=== PATIENT | male | born 2000 | race Hispanic/Latino ===

== ENCOUNTER 2024-03-26 06:40 | Emergency (ER) | payer SELFPAY ==
[~2024-03-26] VITALS: Ht 182.9 cm; Wt 106.2 kg
[2024-03-26 08:09] LABS: RSV AMPLIFICATION NEGATIVE (NEGATIVE)
[2024-03-26 09:25] VITALS: O2SAT 99
[2024-03-26 10:24] VITALS: BP 120/60; TEMP 97.7
[2024-03-26] MEDS: IBUPROFEN 600MG TAB PO ONE (10:25)
== END 2024-03-26 10:28 | disposition home or self-care (01) ==
LOC: M ED 06:40 → EDBD 06:40 → M ED 10:28
DX: J02.9 Acute pharyngitis, unspecified (principal)

== ENCOUNTER 2024-05-16 12:13 | Emergency (ER) | payer SELFPAY ==
[~2024-05-16] VITALS: Ht 180.3 cm; Wt 110.6 kg
[2024-05-16 12:22] VITALS: BP 137/76; TEMP 98.7; O2SAT 100
[2024-05-16] MEDS: AUGMENTIN 875 MG TAB PO ONE (12:38)
[2024-05-16] MEDS ORDERED: AMOX875T2 PO (12:49)
== END 2024-05-16 13:15 | disposition home or self-care (01) ==
LOC: EDBD 12:13 → M ED 12:13
DX: S01.351A Open bite of right ear, initial encounter (principal); Y04.1XXA Assault by human bite, initial encounter; Y92.9 Unspecified place or not applicable; Y93.9 Activity, unspecified; Y99.9 Unspecified external cause status

== ENCOUNTER 2024-07-27 17:31 | Emergency (ER) | payer SELFPAY ==
[~2024-07-27] VITALS: Ht 182.9 cm; Wt 108.9 kg
[~2024-07-27 17:31] MED LIST: AMOX875T2 PO
[2024-07-27 17:51] VITALS: BP 166/77; TEMP 98.1; O2SAT 100
[2024-07-27] MEDS ORDERED: AMOX500C PO (20:38)
[2024-07-27] MEDS: AMOXICILLIN 500 MG CAP PO ONE (20:46)
[2024-07-27] MEDS: IBUPROFEN 100MG 5ML SUSP UDC DYE FREE PO ONE (20:46)
== END 2024-07-27 20:49 | disposition home or self-care (01) ==
LOC: M ED 17:31
DX: J02.0 Streptococcal pharyngitis (principal)

== ENCOUNTER → 2024-08-29 | Outpatient (REF) | payer SELFPAY ==
[~2024-08-29] MED LIST changes: +AMOX500C PO
[2024-08-29 15:27] LABS: Trichomonas vaginalis (AMP) NOT DETECTED (NEGATIVE)
[2024-08-29 15:50] LABS: GC DNA AMPLIFICATION NEGATIVE (NEGATIVE)
== END ==
LOC: M LAB REF 12:48
PROVIDERS: ATTEND Physician Assistant
DX: Z11.9 Encounter for screening for infectious and parasitic diseases, unspecified (principal)

== ENCOUNTER → 2024-09-02 | Outpatient (REF) | payer SELFPAY ==
[2024-09-02 14:29] LABS: HEMOGLOBIN A1c 5.2 % (4.0-6.0)
[2024-09-02 14:58] LABS: ALBUMIN 4.5 G/DL (3.2-5.2); ALKALINE PHOSPHATASE 100 U/L (40-129); ALT/SGPT 20 U/L (7.0-40); AST/SGOT 19 U/L (<34); BILIRUBIN,TOTAL 1.2 MG/DL (0.3-1.2); BLOOD UREA NITROGEN 11 MG/DL (9-23); CALCIUM LEVEL 9.6 MG/DL (8.5-10.1); CARBON DIOXIDE LEVEL 28 MMOL/L (20-31); CHLORIDE LEVEL 105 MMOL/L (98-107); CHOLESTEROL LEVEL 161 MG/DL (<200); CHOLESTEROL RISK RATIO 3.83 (<5); CREATININE FOR GFR 0.79 MG/DL (0.70-1.30); GLOMERULAR FILTRATION RATE > 60.0 (>60); GLUCOSE, FASTING 96 MG/DL (60-100); HEPATITIS C VIRUS ABY INDEX 0.35 INDEX (<0.8); HIV 1&2 SCREEN NEGATIVE (NEGATIVE); LDL CHOLESTEROL 104.8 MG/DL (<100); POTASSIUM SERUM 4.2 MMOL/L (3.5-5.1); SODIUM LEVEL 142 MMOL/L (136-145); THYROID STIMULATING HORMONE 0.729 uIU/ML (0.55-4.78); TOTAL 25(OH) VITAMIN D 11.9 NG/ML (20.0-100.0); TRIGLYCERIDES LEVEL 71 MG/DL (<150)
== END ==
LOC: M LAB REF 11:53
PROVIDERS: ATTEND Physician Assistant
DX: Z11.9 Encounter for screening for infectious and parasitic diseases, unspecified (principal); E66.9 Obesity, unspecified; E55.9 Vitamin D deficiency, unspecified

== ENCOUNTER 2024-11-25 16:48 | Emergency (ER) | payer OTHER, SELFPAY ==
[~2024-11-25] VITALS: Ht 182.9 cm; Wt 112.0 kg
[2024-11-25] MEDS: ACETAMINOPHEN 325 MG TAB PO ONE (20:55)
[2024-11-25] MEDS: AMPICILLIN SOD/SULBACTAM SOD 3 GM in DEXTROSE 5% (D5W) MINI-BAG PLU 100 ML IV ONE (21:10)
[2024-11-25] MEDS: dexAMETHasone 20MG/5ML VIAL IV ONE (21:10)
[2024-11-25 21:47] LABS: BASO % 0.3 % (0.0-1.0); EOS # 0.1 10^3/uL (0.0-0.5); EOS % 0.8 % (0.0-3.0); HEMATOCRIT 45.6 % (42.0-52.0); HEMOGLOBIN 15.6 g/dl (13.5-17.5); LYMPH # 0.8 10^3/uL (1.5-5.0); LYMPH % 5.8 % (24.0-44.0); MEAN CORPUSCULAR HEMOGLOBIN 30.6 pg (27.0-33.0); MEAN CORPUSCULAR HGB CONC 34.2 g/dl (32.0-36.5); MEAN CORPUSCULAR VOLUME 89.4 fl (80.0-96.0); MONO # 0.8 10^3/uL (0.0-0.8); MONO % 5.7 % (2.0-8.0); NEUTROPHILS # 12.4 10^3/uL (1.5-8.5); PLATELET COUNT, AUTOMATED 184 10^3/uL (150-450); WHITE BLOOD COUNT 14.2 10^3/uL (4.0-10.0)
[2024-11-25] MEDS ORDERED: ISOVUE-370 76% 100ML VIAL As Ordered ONE (21:54)
[2024-11-25 22:41] LABS: ERYTHROCYTE SEDIMENTATION RATE 56 mm/hr (0-15)
[2024-11-25] MEDS ORDERED: AMOX875T2 PO (22:46)
[2024-11-25 22:51] VITALS: BP 136/73; TEMP 99.1; O2SAT 97
== END 2024-11-25 22:52 | disposition home or self-care (01) ==
LOC: M ED 16:48
DX: J03.00 Acute streptococcal tonsillitis, unspecified (principal)
CPT/HCPCS: 70491; 80047; 85025; 85652; 86140; 87040; 87880; 96374; 96375; 99284; J0295; J1100; Q9967

== ENCOUNTER → 2025-03-04 | Outpatient (REF) | payer OTHER ==
[2025-03-04 16:11] LABS: HIV 1&2 SCREEN NEGATIVE (NEGATIVE)
[2025-03-04 16:19] LABS: HEPATITIS C VIRUS ABY INDEX 0.03 INDEX (<0.8)
[2025-03-07 15:17] LABS: HSV SOURCE Serum; HSV-1 DNA Not Detected (Not Detected); HSV-2 DNA Not Detected (Not Detected)
== END ==
LOC: M LAB REF 14:42
PROVIDERS: ATTEND Physician Assistant
DX: Z11.3 Encounter for screening for infections with a predominantly sexual mode of transmission (principal)

== ENCOUNTER → 2025-04-23 | Outpatient (REF) | payer OTHER ==
[2025-04-23 19:01] LABS: Trichomonas vaginalis (AMP) NOT DETECTED (NEGATIVE)
[2025-04-23 19:26] LABS: GC DNA AMPLIFICATION NEGATIVE (NEGATIVE)
== END ==
LOC: M LAB REF 16:28
PROVIDERS: ATTEND Physician Assistant
DX: Z11.3 Encounter for screening for infections with a predominantly sexual mode of transmission (principal); A64 Unspecified sexually transmitted disease; Z11.9 Encounter for screening for infectious and parasitic diseases, unspecified